=== PATIENT | female | born 1965 | race Caucasian/White ===

== ENCOUNTER → 2016-04-19 | Outpatient (CLI) | payer OTHER ==
[~2016-04-19] MED LIST: PROP80CA PO
[2016-04-19 14:05] LABS: ESTIMATED AVERAGE GLUCOSE 131 mg/dl; HA1C FLAG Normal (Normal)
[2016-04-19 14:08] LABS: ALKALINE PHOSPHATASE 104 U/L (45-117); ALT/SGPT 32 U/L (12-78); AST/SGOT 16 U/L (15-37); BLOOD UREA NITROGEN 10 mg/dl (7-18); BUN/CREATININE RATIO 15.4 (10-20); CALCIUM 8.8 mg/dl (8.5-10.1); CARBON DIOXIDE 26 mmol/L (21-32); CHLORIDE 108 mmol/L (98-107); CHOLESTEROL 194 mg/dl (0-200); CHOLESTEROL/HDL RATIO 4.6; CREATININE 0.63 mg/dl (0.60-1.20); GLUCOSE 90 mg/dl (70-99); HDL CHOLESTEROL 42 mg/dl; LDL CHOLESTEROL CALCULATED 120 mg/dl; POTASSIUM 4.2 mmol/L (3.5-5.1); SODIUM 142 mmol/L (136-145); TRIGLYCERIDES 162 mg/dl (0-150); VERY LOW DENSITY LIPOPROT CALC 32 mg/dl
== END | disposition home or self-care (01) ==
LOC: C.LABBC 09:57
PROVIDERS: ATTEND Internal Medicine
DX: E78.5 Hyperlipidemia, unspecified (principal); R73.9 Hyperglycemia, unspecified

== ENCOUNTER → 2016-06-13 | Outpatient (CLI) | payer OTHER ==
[~2016-06-13] MED LIST changes: +ACET-1256 PO; +OXYC1TAB3 PO
--- NOTE | 2016-06-13 13:03 | MAMMOGRAPHY REPORT ---
BILATERAL DIGITAL SCREENING MAMMOGRAM TOMOSYNTHESIS WITH CAD: 06/13/2016 CLINICAL HISTORY: Routine screening. Patient has no complaints. TECHNIQUE: Breast tomosynthesis in addition to standard 2D mammography was performed. Current study was also evaluated with a Computer Aided Detection (CAD) system. COMPARISON: Comparison is made to exams dated: 07/09/2013 mammogram, 05/29/2011 mammogram - [facility], and 06/09/2008. BREAST COMPOSITION: There are scattered areas of fibroglandular density in both breasts. FINDINGS: No suspicious masses, calcifications, or areas of architectural distortion are noted in e ither breast. There has been no significant interval change compared to prior exams. IMPRESSION: ACR BI-RADS CATEGORY 1: NEGATIVE There is no mammographic evidence of malignancy. A 1 year screening mammogram is recommended. The p atient will receive written notification of the results. Approximately 10% of breast cancers are not detected with mammography. A negative mammographic repor t should not delay biopsy if a clinically suggestive mass is present. Irene Herrera M.D. ah/:06/13/2016 10:29:10 Cotton Converter: Teresa LAWRENCE(Ranjit)(Franca), [facility] letter sent: Normal 1/2 BI-RADS Code: ACR BI-RADS Category 1: Negative
== END | disposition home or self-care (01) ==
LOC: C.MAMM 09:58
PROVIDERS: ATTEND Obstetrics & Gynecology
DX: Z12.31 Encounter for screening mammogram for malignant neoplasm of breast (principal)

== ENCOUNTER 2017-01-18 09:33 | Observation (INO) | payer OTHER ==
[~2017-01-18] VITALS: Ht 165.1 cm; Wt 114.0 kg
[~2017-01-18 09:33] MED LIST changes: -ACET-1256 PO; -OXYC1TAB3 PO
[2017-01-18] MEDS ORDERED: IBUPROFEN 600 MG TAB PO STA (09:57)
--- NOTE | 2017-01-18 11:01 | DIAGNOSTIC IMAGING REPORT ---
R FOREARM 2 VIEWS ROUTINE CLINICAL HISTORY: FOOSH, Rwrist and forearm. COMPARISON: None FINDINGS: Note is made of an acute moderately displaced comminuted distal right radial fracture with intra-articular extension. There is dorsal tilt of the distal component. No additional fractures are identified. IMPRESSION: Acute moderately displaced comminuted distal right radial fracture with intra-articular extension and dorsal tilt of the distal component consistent with a Colles' fracture. Electronically signed by: Adrian Bates M.D. 01/18/2017 11:00 AM Dictated Date/Time: 01/18/2017 10:58 AM
--- NOTE | 2017-01-18 11:02 | DIAGNOSTIC IMAGING REPORT ---
R WRIST MIN 3 VIEWS ROUTINE CLINICAL HISTORY: Fall. COMPARISON: None FINDINGS: There is an acute moderately displaced distal right radial fracture with intra-articular extension and dorsal tilt of the distal component. No acute fracture of the distal right ulna is identified. Carpal bones appear intact. Soft tissue swelling is present. IMPRESSION: Acute moderately displaced distal right radial fracture with intra-articular extension and dorsal tilt of the distal component consistent with a Colles' fracture. Electronically signed by: Adrian Bates M.D. 01/18/2017 11:01 AM Dictated Date/Time: 01/18/2017 11:00 AM
[2017-01-18] MEDS ORDERED: LIDOCAINE HCL 1% 20 ML VIAL INFIL ONE (12:15)
[2017-01-18] MEDS ORDERED: BUPIVACAINE 0.5 % 5 MG/1 ML MPF 30ML VIAL INFIL ONE (12:15)
[2017-01-18] MEDS ORDERED: MIDAZOLAM HCL 1 MG/ML 2ML VIAL ONE (13:32)
[2017-01-18] MEDS ORDERED: FENTANYL CITRATE INJ 50 MCG/1 ML 2 ML VIAL ONE ×2 (13:32→15:24)
[2017-01-18] MEDS ORDERED: LIDOCAINE HCL 2% 2 ML VIAL (20MG/ML) ONE (13:33)
[2017-01-18] MEDS ORDERED: PROPOFOL IV EMULSION 10 MG/ML 20 ML VIAL IV ONE (13:33)
[2017-01-18] MEDS ORDERED: ONDANSETRON INJ 2 MG/ML 2 ML VIAL ONE (13:33)
--- NOTE | 2017-01-18 13:34 | History and Physical ---
History & Physical Date & Time of Service: Jan 18, 2017 at 13:24 Chief Complaint: Right Wrist/Arm Pain Primary Care Physician: Tonny Cotton M.D. History of Present Illness Source: patient This 51-year-old white female presented to the ED for evaluation of her right wrist. Patient fell in the shower this morning and landed on her right arm. She had immediate onset of pain. She noticed a deformity and came to the ED for evaluation. Right-hand dominant. She states she has a baseline history of tingling in her thumb through ring fingers secondary to carpal tunnel syndrome. It has been ongoing for years and gradually worsening. However, after falling today, she states the tingling in her fingers is no worse than usual. Pain radiates to the forearm. No pain in the elbow or shoulder. She has not attempted any motion. No prior history of significant wrist injury or fracture. Treatment has consisted of ice and Motrin given in the ED. Her accompanies her today. Past Medical/Surgical History Medical Problems: (1) Appendiceal abscess Status: Resolved (2) Perforated appendicitis Status: Resolved Surgical Problems: (1) History of hysterectomy Status: Resolved Previous surgeries: Multiple laparoscopies. [place] tooth extraction. Medical History: Significant for endometriosis. Social History Smoking Status: Never Smoker Smokeless Tobacco Use: No Drug Use: none Marital Status: Housing status: lives with family Occupational Status: employed Immunizations History of Influenza Vaccine: Unknown History of Tetanus Vaccine?: Unknown History of Pneumococcal: Unknown History of Hepatitis B Vaccine: Unknown Multi-Drug Resistant Organisms History of MDRO: No Allergies Coded Allergies: Penicillins (Verified Allergy, Intermediate, SWELLING, HIVES, 01/18/17) Sulfa Drugs (Verified Allergy, Intermediate, SWELLING, HIVES, 01/18/17) Latex1 -Allergic Contact Dermititis (Verified Allergy, Unknown, swelling up, 01/18/17) Home Medications Scheduled Propranolol Hcl (Propranolol Hcl Er), 80 MG PO HS Review of Systems REVIEW OF SYSTEM: HEENT: No dizziness, visual problems, hearing loss, or tinnitus. There is no difficulty swallowing and no oral lesions are present. PULMONARY: No cough, shortness of breath, sputum production or hemoptysis. CARDIOVASCULAR: No chest pain, palpitations, shortness of breath or peripheral edema. GASTROINTESTINAL: No diarrhea, constipation, nausea, vomiting, or abdominal pain. GENITOURINARY: No dysuria, frequency, urgency or nocturia. NEUROLOGIC: No weakness, muscle tenderness, epilepsy or history of neurological problems. MUSCULOSKELETAL: No history of joint tenderness/swelling. No history of arthritis or arthralgias. SKIN: No rashes or lesions. PSYCHIATRIC: No history of depression or mental illness. ENDOCRINE: No history of diabetes, thyroid disorders, or abnormal hair growth. Physical Exam Vital Signs Date Time Temp Pulse Resp B/P (MAP) Pulse Ox O2 Delivery O2 Flow Rate FiO2 01/18/17 11:17 68 20 116/63 97 Room Air 01/18/17 09:40 36.8 77 18 145/77 95 Room Air Gen.: Well-developed, well-nourished, middle-aged white female, in no acute distress. Laying on a bed. Alert and oriented. Obvious deformity to her right wrist. Skin: Warm and dry with good turgor. No rashes or lesions. No ecchymosis or erythema. The patient is not diaphoretic. No abrasions. Deformity at her right wrist. HEENT: Normocephalic atraumatic. Eyes PERRLA, EOMI. No conjunctiva or scleral injection. Nares patent bilaterally without turbinate enlargement. No significant drainage. No epistaxis. Oropharynx without erythema or exudate. Uvula midline, oral mucosa moist. No lesions present. Dental caps are noted. Lungs: Lungs are clear to auscultation. No crackles rhonchi or wheezing. Good air movement. The patient is able to take a deep breath. Abdomen: Abdomen was inspected, auscultated, and palpated. Obese. Bowel sounds present x 4. Soft, nontender to palpation. No hepato-splenomegaly. No masses noted. No rebound. Musculoskeletal: Patient has intact motor function toward her shoulder. Finger motion is intact for flexion and extension. Thumb circumduction is intact. Wrist and elbow range of motion were not attempted secondary to the obvious deformity. Neurologic: Gross sensation is intact across each of the digits of the right hand by soft touch. She has decreased subjective sensation across the median nerve distribution from the thumb to the ring finger. Capillary refill is equal for each of the digits. Peripheral pulses are 2+. Diagnostics Diagnostic Radiology Radiographic Imaging obtained today shows a comminuted intra-articular distal radius fracture with dorsal angulation. Impression Assessment and Plan Impression: Right distal radius intra-articular fracture with displacement Plan: Patient was seen in room C5. Informed oral consent was obtained for hematoma block and trial reduction of her fracture. A total of 6 mL of 1% plain lidocaine and 6 mL 0.5% plain Marcaine were used. This was done by Dr. Velez. Patient was shielded appropriately. She was placed in finger traps with 10 pounds of traction weights. The fracture was partially reduced with better angulation and minimal displacement. The intra-articular fragment did not adequately reduced. A second attempt at reduction was performed. The intra -articular fragment did not adequately reduced. Because of this, recommendation was made for surgical ORIF of the right distal radius. Patient was in agreement and preferred to have the surgery performed today. She has had nothing by mouth since last night. She did have a small sip water with her Motrin approximately one hour ago. Informed written consent was obtained to proceed with surgical intervention. Due to her long standing carpal tunnel symptoms, and the risk of her carpal tunnel worsening from the surgery, we are going to proceed with a carpal tunnel release at the same time as performing the ORIF. Appropriate risks and benefits were discussed. Patient was placed in a plaster sugar tong splint for immobilization until surgical fixation. Her is aware. Plan on admitting overnight for 23 hour stay for pain control and monitoring after surgery. Attending attestation: I saw and examined the patient and agree with the above note. Plan for ORIF R distal radius fracture and R carpal tunnel release.
--- NOTE | 2017-01-18 13:47 | DIAGNOSTIC IMAGING REPORT ---
WRIST 2 VIEWS CLINICAL HISTORY: Right wrist fracture. COMPARISON STUDY: Right wrist radiographs January 18, 2017 at 10:34 AM. Fluoroscopy time: 21 seconds. FINDINGS: 2 fluoroscopic images demonstrate improved alignment of the distal right radial fracture status post reduction. IMPRESSION: Improved alignment of the distal right radial fracture status post reduction. Electronically signed by: Adrian Bates M.D. 01/18/2017 1:45 PM Dictated Date/Time: 01/18/2017 1:44 PM
[2017-01-18] MEDS ORDERED: SCOPOLAMINE 1.5 MG TDSY TD ONE (13:50)
[2017-01-18] MEDS ORDERED: CLINDAMYCIN PHOS 150 MG/ML 2 ML VIAL ONE (13:56)
[2017-01-18] MEDS ORDERED: METOCLOPRAMIDE HCL INJ 5 MG/ML 2 ML VIAL ONE (14:26)
[2017-01-18] MEDS ORDERED: DEXAMETHASONE SOD INJ 4 MG/ML VIAL ONE (14:26)
--- NOTE | 2017-01-18 16:20 | DIAGNOSTIC IMAGING REPORT ---
R WRIST 2 VIEWS CLINICAL HISTORY: ORIF RT WRIST COMPARISON STUDY: Right wrist radiographs performed earlier today. Fluoroscopy time: 25.2 seconds. FINDINGS: 2 fluoroscopic images demonstrate placement of a distal right radial plate and screws which fixate the distal right radial fracture. Alignment is improved and appears near anatomic. Hardware is intact. There are no unexpected radiopaque foreign bodies. IMPRESSION: Expected findings following distal right radial internal fixation. Electronically signed by: Adrian Bates M.D. 01/18/2017 4:19 PM Dictated Date/Time: 01/18/2017 4:18 PM
[2017-01-18] MEDS ORDERED: HYDROmorphone INJ 1 MG/ML SYR IV PRN (16:45)
[2017-01-18] MEDS ORDERED: MoRPHine SULFATE 4 MG/ML 1 ML CARP\\VIAL IV PRN (16:45)
[2017-01-18] MEDS ORDERED: FLUMAZENIL 0.1 MG/1 ML 10 ML VIAL IV PRN (16:45)
[2017-01-18] MEDS ORDERED: LABETALOL HCL IV 5 MG/ML 20ML IV PRN (16:45)
[2017-01-18] MEDS ORDERED: PROMETHAZINE HCL INJ 12.5 MG in SODIUM CHLORIDE 0.9% 50ML 50 ML IV PRN (16:45)
[2017-01-18] MEDS ORDERED: ALUMINUM/MAGNESIUM/SIMETH (MAALOX MAX) 30 ML UDC PO PRN (16:45)
[2017-01-18] MEDS ORDERED: DiphenhydrAMINE HCL 50 MG/ML VIAL IV PRN (16:45)
[2017-01-18] MEDS ORDERED: ONDANSETRON INJ 2 MG/ML 2 ML VIAL IV PRN ×2 (16:45)
[2017-01-18] MEDS ORDERED: EpHEDrine SULFATE INJ 50 MG/ML AMP IV PRN (16:45)
[2017-01-18] MEDS ORDERED: ATROPINE SULFATE 0.1 MG/ML 5ML SYR IV PRN (16:45)
[2017-01-18] MEDS ORDERED: NALOXONE HCL 0.4 MG/1 ML VIAL/CARP IV PRN (16:45)
[2017-01-18] MEDS ORDERED: ZOLPIDEM TARTRATE 5 MG TAB PO PRN (16:45)
[2017-01-18] MEDS ORDERED: OXYCODONE HCL IR 5 MG TAB (IMMEDIATE RELEASE) PO PRN (16:45)
--- NOTE | 2017-01-18 16:46 | [facility] Post Operative Brief Note ---
Immediate Operative Summary Operative Date Jan 18, 2017. Pre-Operative Diagnosis Right distal radius intra-articular fracture with displacement Post-Operative Diagnosis Right distal radius intra-articular fracture with displacement Procedure(s) Performed Open Reduction Internal Fixation Right Radius & Carpal Tunnel Release Surgeon Dr. Shekhar Mayorga [employer] Surgeon(s) Galdino Munson PA-C Estimated Blood Loss 50mL Findings 1700 Specimens none per surgeon Drains None Anesthesia General Complication(s) None Disposition Recovery Room / PACU
[2017-01-18] MEDS ORDERED: ACET-1256 PO (16:51)
[2017-01-18] MEDS ORDERED: OXYC1TAB3 PO (16:51)
--- NOTE | 2017-01-18 16:57 | Discharge Instructions ---
Discharge Instructions Date of Service Jan 18, 2017. Admission Reason for Admission: Right Wrist/Arm Pain Discharge Discharge Diagnosis / Problem: s/p ORIF R distal radius fracture and R carpal tunnel release Discharge Goals Goal(s): Decrease discomfort, Improve function, Increase independence Activity Recommendations Activity Limitations: as noted below Lifting Limitations: none Exercise/Sports Limitations: until after follow-up appointment Shower/Bathe: keep incision dry Driving or Machine Use: No driving until after follow-up . Instructions / Follow-Up Instructions / Follow-Up [address] Mayorga Current Hospital Diet Patient's current hospital diet: Regular Diet Discharge Diet Recommended Diet: Regular Diet Procedures Procedures Performed: Open Reduction Internal Fixation Right Radius & Carpal Tunnel Release Pending Studies Studies pending at discharge: no Medical Emergencies . Who to Call and When: Medical Emergencies: If at any time you feel your situation is an emergency, please call 911 immediately. . Non-Emergent Contact Non-Emergency issues call your: Primary Care Provider, Surgeon . "Provider Documentation" section prepared by Gilmer Mayorga. . VTE Core Measure Inpt VTE Proph given/why not?: Hong Alba S[facility] Drug Monitoring Program Search Results: no issues identified
--- NOTE | 2017-01-18 17:05 | Anesthesiology Progress Note ---
Anesthesia Post Op Note Date & Time Jan 18, 2017 at 17:05 Vital Signs Pain Intensity: 0 Vital Signs Past 12 Hours Date Time Temp Pulse Resp B/P (MAP) Pulse Ox O2 Delivery O2 Flow Rate FiO2 01/18/17 17:00 36.1 84 14 148/84 99 Nasal Cannula 2 01/18/17 16:50 79 12 128/69 98 Nasal Cannula 5 01/18/17 16:40 81 19 133/72 95 Nasal Cannula 5 01/18/17 16:31 36.6 85 15 126/84 99 Nasal Cannula 5 01/18/17 13:12 77 16 146/67 98 Room Air 01/18/17 11:17 68 20 116/63 97 Room Air 01/18/17 09:40 36.8 77 18 145/77 95 Room Air Notes Mental Status: alert / awake / arousable, participated in evaluation Pt Amnestic to Procedure: Yes Nausea / Vomiting: adequately controlled Pain: adequately controlled Airway Patency, RR, SpO2: stable & adequate BP & HR: stable & adequate Hydration State: stable & adequate Anesthetic Complications: no major complications apparent
[2017-01-18 17:20] VITALS: BP 130/83; PULSE 81; TEMP 36.9; O2SAT 98
[2017-01-18] MEDS ORDERED: IV FLUIDS COMPLETED PRN (18:00)
[2017-01-18] MEDS: D5W AND 1/2NSS + 20MEQ KCL 1,000 ML IV SCH (18:07)
[2017-01-18] MEDS: CLINDAMYCIN IV 900 MG in DEXTROSE 5% 50ML 50 ML IV SCH (18:07)
[2017-01-18 18:20] VITALS: BP 140/81; PULSE 79; TEMP 37; O2SAT 97
[2017-01-18 19:20] VITALS: BP 144/89; PULSE 73; TEMP 36.9; O2SAT 93
[2017-01-18 20:05] VITALS: BP 144/89; PULSE 73; TEMP 36.9; O2SAT 96; Ht 165.1 cm; Wt 114.0 kg
[2017-01-18 20:31] VITALS: BP 127/84; PULSE 87; TEMP 37; O2SAT 95
--- NOTE | 2017-01-18 20:34 | OPERATIVE REPORT ---
DATE OF OPERATION: 01/18/2017 PREOPERATIVE DIAGNOSES: Right carpal tunnel syndrome and right wrist closed intra-articular distal radius fracture with displacement. POSTOPERATIVE DIAGNOSIS: Same. OPERATIONS PERFORMED: 1. Right carpal tunnel release. 2. Right distal radius fracture open reduction internal fixation. SURGEON: Gilmer Mayorga MD. HEARING HEALTHCARE PRACTITIONER: Nato Munson PA-C. ANESTHESIA: General. IMPLANTS: One DVR short standard width plate with three 3.5 mm cortical screws and seven 2.5 mm locking screws. ESTIMATED BLOOD LOSS: 50 mL. IV FLUIDS: 700 mL of crystalloid. SPECIMENS: None. COMPLICATIONS: None. INDICATIONS: Ms. Menendez is a 51-year-old female who fell this morning getting out of the shower. She sustained a comminuted intra-articular distal radius fracture. She has a history of over 5 years of carpal tunnel symptoms that have been gradually worsening. We attempted a closed reduction under hematoma block in the Emergency Room, but were not able to maintain a satisfactory reduction. Therefore, I recommended open reduction internal fixation. Also, due to the risk for worsening carpal tunnel symptoms, I recommended that we perform a carpal tunnel release at the same time. After reviewing all the risks and benefits of surgery, she elected to proceed. All questions were answered. Informed consent was signed. OPERATIVE FINDINGS: The fracture was reduced and stabilized with a short titanium DVR plate and locking screws distally. The carpal tunnel was released through an extensile incision. Excellent fixation was obtained. DESCRIPTION OF THE OPERATION: The patient was identified in the emergency room where surgical site was marked. She was brought back to main operating room. She was placed on the operating table and general anesthesia was administered. All bony prominences were padded. Perioperative antibiotics were administered. She was prepped and draped in the normal sterile fashion. Prior to incision, a multidisciplinary timeout was called. All in the room, in agreement. We began by exsanguinating the limb with an Esmarch bandage. Tourniquet was inflated to 250 mmHg. Total tourniquet time for the case was 83 minutes. Incision was made starting at the proximal aspect of the carpal tunnel midway between the thenar and hypothenar eminences extending to the proximal wrist crease then moving slightly radially and then longitudinally in line with the FCR tendon for a total length of approximately 10 cm. We dissected down through the subcutaneous fat to the level of the palmar fascia. This was incised in line with the incision revealing the underlying transverse carpal ligament. A deep knife was used to release the transverse carpal ligament in its entirety, which was quite tight. This was extended from the palmar fat all the way to the proximal termination of the transverse carpal ligament. Next, the FCR tendon was identified. We incised the fascia overlying the FCR proximally. The tendon was retracted radially. The underlying fascia was incised underneath the FCR tendon. The flexor FDS and FDP were retracted ulnarly. The FPL and pronator quadratus were elevated subperiosteally in an L-shaped cut stopping distally at the watershed fletcher at the volar capsular insertion. The fracture was then identified. It was irrigated with normal saline to remove fracture hematoma. A freer was used through the fracture site to manipulate the dorsal fragment into a more distal location. We then brought in fluoroscopy and were able to obtain a satisfactory reduction with the wrist in flexion and ulnar deviation. Therefore, a 3-hole standard width plate was chosen and applied to the volar aspect of the radius and secured in position with K wires. The position of the plate was optimized under fluoroscopic guidance. We then placed a single 3.5 mm cortical screw in the oblong hole of the plate. We filled all the locking screw holes distally, taking care to ensure that none of the screw heads were prominent dorsally to irritate the extensor tendons. We then filled our remaining two 3.5 mm cortical screw holes proximally. Fluoroscopy was brought in to confirm proper screw lengths and the adequacy of our reduction was confirmed. The tourniquet was let down. Meticulous hemostasis was achieved. The wound was closed in layers using 3-0 Vicryl for the deep dermis followed by 4-0 nylon in horizontal mattress fashion for the skin. Sterile dressings were applied followed by a volar plaster slab splint with the wrist held at neutral. The patient was awoke from anesthesia and transferred to the recovery room in stable condition. POSTOPERATIVE COURSE: The patient will be kept overnight for pain control and monitoring. She will receive IV antibiotics for a total of 24 hours from initial presentation. She will be discharged home tomorrow and elevate her arm. No DVT prophylaxis is indicated for this upper extremity joint surgery in a patient without risk factors. I attest to the content of the Intraoperative Record and any orders documented therein. Any exception s are noted below.
[2017-01-18] MEDS ORDERED: PROPRANOLOL HCL 80 MG LA CAP PO SCH (21:00)
[2017-01-18] MEDS: DOCUSATE SODIUM 100 MG CAP PO SCH (21:00)
[2017-01-18] MEDS: ACETAMINOPHEN 500 MG TAB PO SCH (22:01)
[2017-01-18 22:59] VITALS: BP 109/68; PULSE 79; TEMP 36.9; O2SAT 95
[2017-01-19] MEDS: CLINDAMYCIN IV 900 MG in DEXTROSE 5% 50ML 50 ML IV SCH (02:12)
[2017-01-19] MEDS: D5W AND 1/2NSS + 20MEQ KCL 1,000 ML IV SCH (02:12)
[2017-01-19 03:27] VITALS: BP 101/65; PULSE 67; TEMP 36.8; O2SAT 96
--- NOTE | 2017-01-19 04:11 | Discharge Instructions ---
Discharge Instructions Date of Service Jan 19, 2017. Admission Reason for Admission: Distal Radius Fracture, Right Discharge Discharge Diagnosis / Problem: Right carpal tunnel syndrome, right distal radius fracture Discharge Goals Goal(s): Decrease discomfort, Improve function, Increase independence Activity Recommendations Activity Limitations: as noted below Lifting Limitations: none . Instructions / Follow-Up Instructions / Follow-Up [place] 2 weeks Current Hospital Diet Patient's current hospital diet: Regular Diet Discharge Diet Recommended Diet: Regular Diet Procedures Procedures Performed: Open Reduction Internal Fixation Right Radius & Carpal Tunnel Release Pending Studies Studies pending at discharge: no Medical Emergencies . Who to Call and When: Medical Emergencies: If at any time you feel your situation is an emergency, please call 911 immediately. . Non-Emergent Contact Non-Emergency issues call your: Primary Care Provider . "Provider Documentation" section prepared by Gilmer Mayorga. . VTE Core Measure Inpt VTE Proph given/why not?: KARLA Amado[place] Drug Monitoring Program Search Results: no issues identified
--- NOTE | 2017-01-19 04:13 | Discharge Summary ---
Orthopedic Discharge Summary Admission Date/Reason Jan 18, 2017 at 16:45 Distal Radius Fracture, Right. Discharge Date/Disposition Jan 19, 2017 Home Diagnosis Principal Diagnosis: Right distal radius fracture, right carpal tunnel syndrome Procedure(s) Performed ORIF R distal radius fracture, R carpal tunnel release Medication Reconciliation Tylenol and oxycodone as prescribed Admission Physical Exam As per Admitting History & Physical. Hospital Course Received 24 hours antibiotics. Pain well controlled. Elevated arm. Discharge Instructions Please refer to the electronic Patient Visit Report (Discharge Instructions) for additional information.
[2017-01-19] MEDS: ACETAMINOPHEN 500 MG TAB PO SCH (05:38)
[2017-01-19 07:39] VITALS: BP 103/65; PULSE 85; TEMP 36.6; O2SAT 95
[2017-01-19] MEDS: DOCUSATE SODIUM 100 MG CAP PO SCH (08:08)
[2017-01-19 08:24] VITALS: BP 103/65; PULSE 85; TEMP 36.6; O2SAT 95
--- NOTE | 2017-01-19 08:45 | EMERGENCY ROOM VISIT NOTE ---
ED Visit Note First contact with patient: 09:47 Chief Complaint: Right wrist and forearm pain. History of Present Illness: Ms. Menendez is a 51-year-old white female who ambulates into the ED accompanied by a male friend complaining of right wrist and forearm pain. Patient reports approximately 1.5 hours ago she was walking out of her shower, tripped and fell on her outstretched right forearm. She reports she immediately started having pain over the distal radius. Since then the pain a started radiating up to the midforearm area. Currently she describes her pain as a combination of sharp and throbbing. She rates her discomfort 8/10. She has not taken any medications for pain prior to arrival at the hospital. Associated with her pain she reports she had tingling sensations throughout the fingers but then also reports she has a history of carpal tunnel syndrome and she has had previous before today's injury. She denies any lightheaded or dizziness before the fall, striking her head or having a loss of consciousness at the time of the fall. Neck pain, back pain, shoulder pain, elbow pain, hand weakness, previous significant injuries or surgeries on the left wrist or forearm. Review of Systems: As noted above in history of present illness. Past Medical History: Status post exploratory laparoscopy, hysterectomy and appendectomy. Current Medications: Propranolol. Allergies to Medications: Latex, sulfa and penicillin. Social History: Patient is currently employed; she feels safe in her home environment; she denies tobacco use and admits to social alcohol use. Physical Examination: Vital Signs: Date Time Temp Pulse Resp B/P (MAP) Pulse Ox O2 Delivery O2 Flow Rate FiO2 01/18/17 16:40 81 19 133/72 95 Nasal Cannula 5 01/18/17 16:31 36.6 85 15 126/84 99 Nasal Cannula 5 01/18/17 13:12 77 16 146/67 98 Room Air 01/18/17 11:17 68 20 116/63 97 Room Air 01/18/17 09:40 36.8 77 18 145/77 95 Room Air GENERAL: 51-year-old female in mild distress due to pain, nontoxic-appearing, afebrile and hemodynamically stable. NEUROLOGICAL: Awake, alert and oriented to person, place and time. Answering questions appropriately and following commands. SKIN: Warm, dry and pink. No soft tissue trauma noted. RIGHT UPPER EXTREMITY: No gross bony deformity. No tenderness in the shoulder or the elbow. Tender starting at the mid forearm area over the radius and extending to the distal radius where there is obvious swelling and bony crepitus. No tenderness over the ulna. Decreased range of motion in all movements due to pain. Throughout the hands the skin was warm and pink and capillary refill is brisk. She is able to distinguish light sensations through all dermatomes of the hand. ED Course: Patient is assessed as noted above. Patient's medication list was reviewed. Patient was given 600 mg of ibuprofen and ice for pain and comfort. Right Wrist X-Rays: Were read by myself and the radiologist showing an acute moderately displaced distal right radius fracture with intra-articular extension and the dorsal tilt to the posterior component consistent with Colles ' fracture. Patient was educated about today's findings. Patient's case was consulted with Dr. Haley, orthopedic surgery; he came in the emergency department to help reduce the patient's injury but was unsuccessful. After evaluation he elected to take the patient to surgery to fix her fracture. See his notes and orders for final disposition and plan. Patient was educated about tonight's findings. Clinical Impression: Moderately displaced distal right radius fracture with intra-articular extension. Disposition and Plan: Patient be taken the OR by Dr. Velez; we see his notes and orders for final disposition and plan.
[2017-01-19] MEDS ORDERED: MULTIVITAMIN TAB PO SCH (09:00)
== END 2017-01-19 09:55 | disposition home or self-care (01) ==
LOC: C.EDB 09:35 → C.MSN 16:45 → ENRESERV 16:51
PROVIDERS: ADMIT Orthopaedic Surgery; ATTEND Orthopaedic Surgery
DX: G56.01 Carpal tunnel syndrome, right upper limb (principal); S52.571A Other intraarticular fracture of lower end of right radius, initial encounter for closed fracture; W18.2XXA Fall in (into) shower or empty bathtub, initial encounter; E66.9 Obesity, unspecified; E78.5 Hyperlipidemia, unspecified; Z68.41 Body mass index [BMI] 40.0-44.9, adult; Z98.890 Other specified postprocedural states; Z90.89 Acquired absence of other organs; Z91.040 Latex allergy status; Z88.2 Allergy status to sulfonamides; Z88.0 Allergy status to penicillin

== ENCOUNTER → 2017-01-31 | Outpatient (CLI) | payer OTHER ==
[~2017-01-31] MED LIST changes: +OXYC1TAB3 PO
== END | disposition home or self-care (01) ==
LOC: C.RDSM 15:08
PROVIDERS: ATTEND Orthopaedic Surgery
DX: T14.8XXA Other injury of unspecified body region, initial encounter (principal); X58.XXXA Exposure to other specified factors, initial encounter

== ENCOUNTER → 2017-02-28 | Outpatient (CLI) | payer OTHER | END | disposition home or self-care (01) | LOC: C.RDSM 15:31 | PROVIDERS: ATTEND Orthopaedic Surgery | DX: S62.101A Fracture of unspecified carpal bone, right wrist, initial encounter for closed fracture (principal); X58.XXXA Exposure to other specified factors, initial encounter ==

== ENCOUNTER → 2017-04-25 | Outpatient (CLI) | payer OTHER | END | disposition home or self-care (01) | LOC: C.RDSM 11:00 | PROVIDERS: ATTEND Orthopaedic Surgery | DX: Z98.890 Other specified postprocedural states (principal) ==